=== PATIENT | male | born 1960 | race Caucasian/White ===

== ENCOUNTER 2018-04-03 06:52 | Inpatient (IN) ==
[2018-04-03] MEDS ORDERED: Metoprolol Tartrate 25 MG Tablet PO SCH (07:41)
[2018-04-03] MEDS ORDERED: Chlorhexidine Gluconate 2% 1 Pack (2 Cloths) TOPICAL SCH (07:41)
[2018-04-03] MEDS ORDERED: Sodium Chlor 0.9% Inj 500 ML IV.SIG SCH (08:00)
[2018-04-03] MEDS ORDERED: ceFAZolin 2 GM Premix Inj 2 GM/50 ML PIGGYBACK IV.SIG ONE (10:13)
[2018-04-03] MEDS ORDERED: Bupivacaine/Epinephrine Inj 0.25% 50 ML Vial ONE (10:13)
[2018-04-03] MEDS ORDERED: Lidocaine PF 1% Inj 5 ML Syringe OTHER ONE (11:00)
[2018-04-03] MEDS ORDERED: Neostigmine Inj 5 MG/5 ML Syringe IV.PUSH ONE (11:00)
[2018-04-03] MEDS ORDERED: Glycopyrrolate Inj 1 MG/5 ML Syringe IV.PUSH ONE (11:00)
[2018-04-03] MEDS ORDERED: fentaNYL Citrate Inj 100 MCG/2 ML Ampul ONE ×2 (13:54→13:55)
[2018-04-03] MEDS ORDERED: Morphine Inj 4 MG/ML Vial ONE (13:55)
[2018-04-03] MEDS ORDERED: Post-op Orders (for Pharmacy) OTHER STA (14:24)
[2018-04-03] MEDS ORDERED: diphenhydrAMINE HCl 12.5 MG/5 ML Elixir UDC PO PRN (14:24)
[2018-04-03] MEDS ORDERED: KCL 20 mEq/NACL 0.45% Inj 1,000 ML IV.CONT SCH (14:30)
[2018-04-03] MEDS ORDERED: Naloxone Inj 0.4 MG/ML Vial IV.PUSH PRN (14:31)
[2018-04-03] MEDS ORDERED: *Ondansetron Inj 4 MG/2 ML Vial PERIprocedural Use ONLY ONE (14:42)
[2018-04-03] MEDS ORDERED: *morphine SULFATE 4 MG/ML PERIprocedure ONLY ONE (14:42)
[2018-04-03] MEDS: KCL 20 mEq/NACL 0.45% Inj 1,000 ML IV.CONT SCH (15:00)
[2018-04-03] MEDS: Morphine Inj 30 MG/30 ML PCA.VIAL PCA PRN (16:50)
[2018-04-03] MEDS: Enoxaparin Inj 40 MG/0.4 ML Syringe SQ SCH (22:00)
[2018-04-03] MEDS: PCA - Total MG Morphine Delevered per Shift MISCELLANE SCH (22:00)
[2018-04-04] MEDS: KCL 20 mEq/NACL 0.45% Inj 1,000 ML IV.CONT SCH ×5 (00:22→22:04)
[2018-04-04] MEDS: PCA - Total MG Morphine Delevered per Shift MISCELLANE SCH ×3 (06:07→22:04)
[2018-04-04 07:13] LABS: Baso % (Auto) 0.2 % (0.0-2.0); Eos % (Auto) 0.1 % (0.0-4.0); Hemoglobin 14.8 gm/dL (13.0-17.0); Lymph # (Auto) 1.3 th/mm3 (1.0-4.8); Lymph % (Auto) 11.2 % (9.0-44.0); Mean Corpuscular HGB Conc 32.8 % (32.0-36.0); Mean Corpuscular Hemoglobin 26.7 pg (27.0-34.0); Mean Corpuscular Volume 81.4 fL (80.0-100.0); Mean Platelet Volume 8.2 fL (7.0-11.0); Mono # (Auto) 0.7 th/mm3 (0.0-0.9); Mono % (Auto) 5.7 % (0.0-8.0); Neut # (Auto) 9.5 th/mm3 (1.8-7.7); Neut % (Auto) 82.8 % (16.0-70.0); Platelet Count 238 th/mm3 (150-450); Red Blood Count 5.53 mil/mm3 (4.50-5.90); Red Cell Distribution Width 15.7 % (11.6-17.2); White Blood Count 11.4 th/mm3 (4.0-11.0)
[2018-04-04 07:28] LABS: Anion Gap 9 meq/L (5-15); Calcium 7.6 mg/dL (8.5-10.1); Carbon Dioxide 25.5 meq/L (21.0-32.0); Chloride 105 meq/L (98-107); Glomerular Filtration Rate Greater Than 89 mL/min (>89); Glucose,Random 111 mg/dL (74-106); Magnesium 2.2 mg/dL (1.5-2.5); Potassium 4.2 meq/L (3.5-5.1); Sodium 139 meq/L (136-145)
[2018-04-04 07:37] LABS: Blood Urea Nitrogen 10 mg/dL (7-18)
[2018-04-04] MEDS: Acetaminophen-HYDROcodone 325/7.5 Liq 15 ML UDC PO PRN ×2 (16:36→22:24)
[2018-04-04] MEDS: Morphine Inj 30 MG/30 ML PCA.VIAL PCA PRN (17:07)
--- NOTE | 2018-04-04 17:42 | P.PNGS ---
Subjective Interval history: Denies any GI complaints Pain and nausea well controlled Physical Exam Vital signs: Vital Signs 04/03/18 20:00 04/04/18 00:00 04/04/18 04:00 Temperature 97.4 F L 98.2 F 97.4 F L Pulse Rate 96 H 89 85 Respiratory Rate 18 Blood Pressure 129/60 127/62 112/56 L Pulse Oximetry 94 L 95 94 L 04/04/18 08:00 04/04/18 12:00 04/04/18 13:25 Temperature 98.0 F 97.6 F 97.2 F L Pulse Rate 79 79 74 Respiratory Rate Blood Pressure 137/91 H 129/58 L 153/77 H Pulse Oximetry 95 95 94 L Intake & Output 04/03/18 04/04/18 04/04/18 18:59 06:59 18:59 Intake Total 2350 / 2350 1200 / 1200 2099 / 2100 Output Total 850 / 850 Balance 2330 / 2330 350 / 350 2099 / 2099 Weight 162.9 kg 160.5 kg Intake: IV 1350 / 1350 1200 / 1200 2100 / 2100 Potassium Chlor 20 mEq/NACL 0. 1000 / 1000 1999 / 1999 45% Inj 1,000 ML @ 125 mls/hr IV.CONT .Q8H [facility] Rx#:[id number] Ofirmev Inj 1,000 mg In 100 ml 100 / 100 100 / 100 @ 400 mls/hr IV.SIG [employer] TECHNICIAN [facility] Rx#:[id number] LR 1000 mL Inj 1,000 ML @ 30 1000 / 1000 mls/hr IV.SIG .Q24H [facility] Rx#: [id number] Ancef 2 GM Premix Inj 2 gm In 50 / 50 50 ml @ 0 mls/hr IV.SIG [facility] Rx#:[id number] Ancef Inj 1,000 MG In NS Inj 100 / 100 100 / 100 100 / 100 100 ML @ 200 mls/hr IV.SIG Q8H [facility] Rx#:[id number] Flagyl 500 MG Inj 100 ML @ 0 100 / 100 mls/hr IV.SIG [facility] Rx#: [id number] Anesthesia Amount 1000 / 1000 Output: Urine 850 / 850 Estimated Blood Loss 20 / 20 Other: # Voids 1 Weight On Admission 162.9 kg Narrative: Constitutional: NAD Cardiac: RRR Lungs: CTA Abdomen: obese, soft with normal post-op tenderness. Surgical incisions C/D/I - Additional findings Additional findings: Laboratory Results - last 12 hr 04/04/18 04/04/18 05:52 05:52 WBC 11.4 H RBC 5.53 Hgb 14.8 Hct 45.0 MCV 81.4 MCH 26.7 L MCHC 32.8 RDW 15.7 Plt Count 238 MPV 8.2 Neut % (Auto) 82.8 H Lymph % (Auto) 11.2 Mccone % (Auto) 5.7 Eos % (Auto) 0.1 Baso % (Auto) 0.2 Neut # (Auto) 9.5 H Lymph # (Auto) 1.3 Mccone # (Auto) 0.7 Eos # (Auto) 0.0 Baso # (Auto) 0.0 WBC Differential . Differential Comment Auto diff final Sodium 139 Potassium 4.2 Chloride 105 Carbon Dioxide 25.5 Anion Gap 9 BUN 10 Creatinine 0.78 Estimated GFR Greater than 89 Random Glucose 111 H Calcium 7.6 L Magnesium 2.2 Results - Labs 04/04/18 05:52 04/04/18 05:52 Laboratory Results - last 24 hr 04/04/18 04/04/18 05:52 05:52 WBC 11.4 H RBC 5.53 Hgb 14.8 Hct 45.0 MCV 81.4 MCH 26.7 L MCHC 32.8 RDW 15.7 Plt Count 238 MPV 8.2 Neut % (Auto) 82.8 H Lymph % (Auto) 11.2 Mccone % (Auto) 5.7 Eos % (Auto) 0.1 Baso % (Auto) 0.2 Neut # (Auto) 9.5 H Lymph # (Auto) 1.3 Mccone # (Auto) 0.7 Eos # (Auto) 0.0 Baso # (Auto) 0.0 WBC Differential . Differential Comment Auto diff final Sodium 139 Potassium 4.2 Chloride 105 Carbon Dioxide 25.5 Anion Gap 9 BUN 10 Creatinine 0.78 Estimated GFR Greater than 89 Random Glucose 111 H Calcium 7.6 L Magnesium 2.2 Assessment and Plan - Plan 57yo M POD#1 VSG -Continue to increase fluids as tolerated -Continue with frequent ambulation Code Status: Full Discussed Condition With: Patient and family at bedside - Attending Attestation The exam, history, and the medical decision-making described in the above note were completed with the assistance of the mid-level provider. I reviewed and agree with the findings presented. I attest that I had a [id number] encounter with the patient on the same day, and personally performed and documented my assessment and findings in the medical record.
[2018-04-04] MEDS: Enoxaparin Inj 40 MG/0.4 ML Syringe SQ SCH ×2 (20:45→22:04)
[2018-04-05] MEDS: Acetaminophen-HYDROcodone 325/7.5 Liq 15 ML UDC PO PRN ×3 (04:13→16:49)
[2018-04-05] MEDS: KCL 20 mEq/NACL 0.45% Inj 1,000 ML IV.CONT SCH ×2 (04:14→07:30)
[2018-04-05] MEDS: PCA - Total MG Morphine Delevered per Shift MISCELLANE SCH (07:30)
[2018-04-05 16:17] VITALS: BP 146/86; PULSE 76; RESP 18; TEMP 98.6; O2SAT 97
--- NOTE | 2018-04-09 19:37 | MP ---
cc: Santino Hickman MD DATE OF OPERATION: 04/03/2018 PREOPERATIVE DIAGNOSIS: Morbid obesity with a body mass index of 51. POSTOPERATIVE DIAGNOSIS: Morbid obesity with a body mass index of 51. PROCEDURE PERFORMED: Laparoscopic vertical sleeve gastrectomy over a 36-Dutch ViSiGi bougie. SURGEON: Santino Hickman MD MANGLE CATCHER: MD Dr. Chacho Burnett's assistance was necessary for the procedure due to the complexity of the procedure. Dr. Flor assisted with manipulation and exposure during the procedure. The assistant women's rowing coach provided by [employer] was utilized for the camera during the procedure. ANESTHESIA: General endotracheal anesthesia. ESTIMATED BLOOD LOSS: 20 mL. FINDINGS: The patient had extensive adhesions of the small bowel. These adhesions were interloop adhesions. They extended throughout his abdominal cavity. There was no meaningful segment of non-adhesed small bowel. As a result, a gastric bypass could be performed. At this point, it was decided to speak to the patient's family to proceed with a sleeve gastrectomy, as the patient does have a history of reflux esophagitis. This was explained to the patient's family. The family felt that the patient would want to have the sleeve if that is all that could be performed with the option to perform antireflux procedure at a later point if necessary COMPLICATIONS: None. DESCRIPTION OF PROCEDURE: After the patient was brought to the operating room, placed on the operating table in supine position. Bilateral sequential inflation device placed on the lower extremities. General anesthesia instituted, antibiotics initiated. The abdomen was prepped and draped sterilely. A point in the epigastrium was anesthetized with 0.25% Marcaine with epinephrine. A skin incision was made, 5 mm Optiview port placed under direct vision and pneumoperitoneum created. Under direct vision, a 5 mm left upper quadrant, 12 mm left upper quadrant, 12 mm right upper quadrant and 5 mm right upper quadrant port was placed. Prior to placement of all ports, the skin and perineum were anesthetized with 0.25% Marcaine with epinephrine. Attempts were made to lift the omentum up. The omentum was adhesed to the small bowel. This was taken down using the Harmonic scalpel. Once the omentum was lifted, the small bowel was inspected, findings as above. It was decided to discuss this with the family, who opted to proceed with a sleeve gastrectomy. At this point, the patient was placed in reverse Trendelenburg position, left side up. Dior-Flex retractor placed and the left lobe of the liver was retracted. The vasculature along the greater curve of the stomach was taken down using the Harmonic scalpel. This started at a distance 5 cm proximal to the pylorus and taken towards the angle of His. The angle of His was taken down bluntly. A 36-Dutch ViSiGi bougie was placed into the stomach. Division of the stomach started 5 cm proximal, taken towards the angle of His to completely excise the stomach. A distance of 2 cm was left from the angle incisura, and the staple line a distance of 1 cm was left from the GE junction at the staple line. Firings were performed, starting with a black load followed by a green load and 3 gold loads. All staple loads were reinforced with SeamGuard. The posterior leaflet of the SeamGuard was secured at 3 points to the gastrocolic ligament. The pylorus was then occluded. Methylene blue was instilled through the ViSiGi bougie. There was no evidence of extravasation. The operative field was inspected and hemostasis present. CO2 was released. All ports were removed. All skin incisions were closed with 4-0 Monocryl. The excised stomach was removed from the peritoneal cavity through the 12 mm port site. The fascia at the 12 mm port site in the right upper quadrant was then approximated with 0 Vicryl using Ernesto-Micah fascial closure device. The CO2 was released. All additional ports were removed. All skin incisions closed with 4-0 Monocryl. The abdominal wall was cleaned and a sterile dressing placed. The patient was awakened and taken to the recovery room. MD AWAIS Yepez/rosa , 05:27 PM , 05:40 PM
== END 2018-04-05 17:26 | disposition home or self-care (01) ==
LOC: EDBD → HSDI 06:52 → N07 16:46
PROVIDERS: ADMIT Surgery; ATTEND Surgery